=== PATIENT | male | born 1975 | race Two or more races ===

== ENCOUNTER 2022-08-22 17:05 | Emergency (ER) | payer OTHER ==
[2022-08-22 17:19] VITALS: BP 120/78; PULSE 81; RESP 18; TEMP 97.6; BMI 22.8
[2022-08-22] MEDS ORDERED: DIPHTH,PERTUSS(ACELL),TET 0.5 ML DISP.SYRIN IM ONE ×2 (18:17→18:23)
== END 2022-08-22 18:31 | disposition home or self-care (01) ==
LOC: JER 17:05 → JERFT 17:05
PROC: 3E0234Z Introduction of Serum, Toxoid and Vaccine into Muscle, Percutaneous Approach (ICD-10-PCS; principal; 2022-08-22)
DX: S91.052A Open bite, left ankle, initial encounter (principal); W54.0XXA Bitten by dog, initial encounter
CPT/HCPCS: 90471; 90715; 99283-25